=== PATIENT | male | born 1995 | race African-American/Black ===

== ENCOUNTER 2024-09-27 07:28 | Emergency (ER) | payer SELFPAY ==
[2024-09-27 08:07] LABS: #Basophils Less than 0.03 10x3/uL (0.0-0.2); #Eosinophils 0.04 10x3/uL (0.0-0.7); #Monocytes 0.27 10x3/uL (0.11-0.59); #Neutrophils 3.09 10x3/uL (1.40-6.50); %Basophils 0.4 % (0.0-1.0); %Eosinophils 0.8 % (0.0-10.0); %Lymphocytes 28.8 % (21.0-51.0); %Monocytes 5.6 % (0.0-10.0); %Neutrophils 64.2 % (42.0-75.0); Hematocrit 40.1 % (42.0-52.0); Hemoglobin 14.2 g/dL (14.0-18.0); Mean Corpuscular Hemoglobin 29.8 pg (27.0-31.0); Mean Corpuscular Volume 84.2 fL (78.0-98.0); Platelet Count 167 10x3/uL (130-400); Red Blood Cell (RBC) Count 4.76 mill/uL (4.70-6.10); White Blood Cell (WBC) Count 4.82 10x3/uL (4.8-10.8)
[2024-09-27 08:24] LABS: Acetaminophen Less than 10 mcg/mL (Less than 10); Salicylate Less than 8.0 mg/dL (Less than 8.0)
[2024-09-27 08:25] LABS: ALT (SGPT) 24 U/L (Less than 45); AST (SGOT) 24 U/L (11-34); Albumin 3.5 g/dL (3.1-4.5); Alkaline Phosphatase 48 U/L (40-110); Anion Gap 11 mmol/L (10-20); BUN (Urea Nitrogen) 15 mg/dL (8.9-20.6); Bilirubin, Total 0.7 mg/dL (0.3-1.2); Calc. Creatinine Clearance 0 mL/min (70-130); Calcium 8.3 mg/dL (7.8-10.44); Carbon Dioxide 26 mmol/L (22-29); Chloride 106 mmol/L (98-107); Globulin 2.3 g/dL (2.4-3.5); Glucose 115 mg/dL (70-105); Potassium 3.5 mmol/L (3.5-5.1); Sodium 139 mmol/L (136-145)
[2024-09-27 08:29] LABS: Actual Bicarbonate (HCO3v) 27.8 mEq/L (22-28); Analyzer IN Cardio ER; Base Excess 0.0 mEq/L (-2.0 to +3.0); Calcium, Ionized (venous) 1.18 mmol/L (1.16-1.32); Chloride (VBG) 102 mmol/L (98-106); Hematocrit-VBG 44 % (42.0-52.0); Hemoglobin (Hb) 15.0 g/dL (13.2-17.3); Potassium (VBG) 3.54 mmol/L (3.70-5.30); Sodium 140 mmol/L (133-146)
[2024-09-27 08:37] LABS: Bacteria/HPF None Seen HPF (None Seen); CAUTI Indications for Culture Alt mental st,lethar; Glucose, Urine (Dipstick) Normal (Negative); Leukocyte Negative Leu/uL (Negative); Protein, Urine (Dipstick) Negative (Neg-Trace); RBC/HPF 0-3 HPF (0-3); Specific Gravity, Urine 1.018 (1.002-1.036); WBC/HPF 0-3 HPF (0-3)
[2024-09-27 08:38] LABS: Urine Culture Reflex No No
[2024-09-27 08:43] LABS: Cocaine Metabolite Screen Negative (Negative); THC/Cannabinoid Screen Negative (Negative); Tricyclic Screen Negative (Negative)
[2024-09-27 09:54] LABS: Actual Bicarbonate (HCO3v) 28.3 mEq/L (22-28); Analyzer IN Cardio ER; Base Excess 0.8 mEq/L (-2.0 to +3.0); Calcium, Ionized (venous) 1.15 mmol/L (1.16-1.32); Chloride (VBG) 103 mmol/L (98-106); Hematocrit-VBG 42 % (42.0-52.0); Hemoglobin (Hb) 14.2 g/dL (13.2-17.3); Potassium (VBG) 4.06 mmol/L (3.70-5.30); Sodium 138 mmol/L (133-146)
== END 2024-09-27 14:30 | disposition short-term general hospital (02) ==
LOC: ERS 07:28
DX: T42.6X2A Poisoning by other antiepileptic and sedative-hypnotic drugs, intentional self-harm, initial encounter (principal)
CPT/HCPCS: 36415; 51701; 80053; 80175; 80306; 80307; 81001; 82805; 85025; 93005; 99285

== ENCOUNTER 2024-12-04 17:40 | Emergency (ER) | payer SELFPAY ==
[2024-12-04] MEDS ORDERED: Orphenadrine Citrate 100 MG ER.TAB ONE (18:20)
[2024-12-04] MEDS ORDERED: Ibuprofen 800 MG TAB ONE (18:20)
== END 2024-12-04 20:28 | disposition home or self-care (01) ==
LOC: ERS 17:40
DX: M25.511 Pain in right shoulder (principal)
CPT/HCPCS: 99283